=== PATIENT | female | born 1995 | race Caucasian/White ===

== ENCOUNTER 2019-10-05 11:05 | Emergency (ER) | payer OTHER, SELFPAY ==
--- NOTE | ~2019-10-05 | XR_ITS ---
EXAMINATION: XR chest 2V EXAM DATE: 10/05/2019 12:52 INDICATION: Cough, congestion with pain 2-3 weeks. TECHNIQUE: Frontal and lateral projections of the chest obtained and reviewed. Comparison is made to prior examination from 10/07/2013. FINDINGS: The lungs are clear. There are no pleural effusions. The cardiomediastinal silhouette is within normal limits. There is no pneumothorax suspected. The bones and soft tissues are unremarkab le. IMPRESSION: Normal chest x-ray exam. Reviewed, dictated and finalized at location A. INSTALLER REPAIRER IMPRESSION: Normal chest x-ray exam.
[2019-10-05 12:00] VITALS: BP 129/87; PULSE 113; RESP 16; TEMP 37; O2SAT 99
--- NOTE | 2019-10-05 12:41 | ED.URI ---
HPI - URI/Sore Throat General Chief Complaint: Upper Respiratory Infection Stated Complaint: cough chest congestion and pain Time Seen by Provider: 10/05/19 12:36 Source: patient and RN notes reviewed Mode of arrival: ambulatory Limitations: no limitations History of Present Illness HPI Narrative: Patient presents today with a 2-day history of occasionally productive cough, bilateral rib pain, shortness of breath, body aches, nasal congestion. Denies fever, sore throat, ear pain. No history of asthma or COPD. She is a non-smoker. She has been taking Tylenol without relief. MD elicited complaint: cough Related Data Home Medications Medication Instructions Recorded Confirmed copper [ParaGard T 380A] 1 device INTRAUTERINE ONCE 10/05/19 10/05/19 hydrocodone-acetaminophen 1 tablet PO Q6H PRN 10/05/19 10/05/19 Allergies Allergy/AdvReac Type Severity Reaction Status Date / Time sulfamethoxazole Allergy Mild rash Verified 10/05/19 12:29 trimethoprim Allergy Mild rash Verified 10/05/19 12:29 Review of Systems Review of Systems: Narrative: CONSTITUTIONAL: Denies fever, chills, or sweats.+Body aches EYES: Denies visual changes, redness, or discharge. ENT: Denies rhinorrhea, sore throat, or otalgia.+Congestion CARDIOVASCULAR: Denies chest pain, palpitations, or edema. RESPIRATORY: +Cough, shortness of breath, Rib pain GASTROINTESTINAL: Denies abdominal pain, nausea, vomiting, or diarrhea. GENITOURINARY: Denies dysuria or hematuria. SKIN: Denies rash, itching, or wounds. MUSCULOSKELETAL: Denies back pain, joint pain, or myalgia. NEUROLOGIC: Denies headache, numbness, tingling, or weakness. PSYCH: Denies depression or anxiety. PMFSH Social History Social History (Updated 10/05/19 @ 12:42 by Erika Dunaway, SALESPERSON [employer], ) Smoking status: Never smoker Comments At time of signature, I have reviewed and agree with nursing past medical, surgical, social and family history unless otherwise noted. Please see nursing chart for further information. There is no relevant family history pertinent to the presenting complaint Exam Narrative: Exam Narrative: GENERAL: Ill-appearing, well-nourished, and in no acute distress. HEAD: Normocephalic, atraumatic. EYES: EOMI. No redness or drainage. Conjunctivae normal. ENT: Mucous membranes pink and moist. Nares clear. No rhinorrhea. TMs normal bilaterally. Throat normal. Uvula midline. NECK: Normal AROM. Supple. No lymphadenopathy. CHEST: No respiratory distress. Diminished in the right lower lobe, Otherwise clear HEART: Regular rate and rhythm. No murmur appreciated. Normal peripheral pulses. EXTREMITIES: Normal range of motion. No edema. SKIN: Warm, dry, no rash. NEURO: No focal deficits. Alert and oriented x3. Gait steady. PSYCH: Normal affect. No signs of depression or anxiety. Course Course Emergency Course: Improved aeration after Duoneb. Vital Signs Vital signs: Vital Signs Temperature 98.6 F 10/05/19 12:00 Pulse Rate 113 H 10/05/19 12:00 Respiratory Rate 16 10/05/19 12:00 Blood Pressure 129/87 10/05/19 12:00 Pulse Oximetry 99 10/05/19 12:00 Temperature 98.6 F 10/05/19 12:00 Pulse Rate 113 H 10/05/19 12:00 Respiratory Rate 16 10/05/19 12:00 Blood Pressure 129/87 10/05/19 12:00 Pulse Oximetry 99 10/05/19 12:00 Reviewed. Pt has been instructed to follow up with her PCP regarding her elevated blood pressure today. MDM - URI/Sore Throat Differential Diagnosis Differential diagnosis: Likely upper respiratory infection, sinusitis, viral infection, bronchitis, influenza and other (Pneumonia pneumonia) Lab Data Attestation: I reviewed the patient's lab results. Labs: Influenza A Screen Negative Reference Range: Negative Influenza B Screen Negative Reference Range: Negative Imaging Data Radiologist's impression: ITS Impressions Chest X-Ray 10/05/19 12:52 IMPRESSION: Normal chest x-r
[2019-10-05] MEDS: IPRATROPIUM BR 0.02% INH SOLN 0.5 MG/2.5 ML VIAL INHALATION (13:01)
[2019-10-05] MEDS: ALBUTEROL SULFATE NEB 2.5 MG/3 ML INH INHALATION (13:02)
== END 2019-10-05 13:30 | disposition home or self-care (01) ==
PROVIDERS: Emergency Provider Nurse Practitioner
DX: J06.9 Acute upper respiratory infection, unspecified (principal)
CPT/HCPCS: 71046; 87804; 94640; 99213; G0463

== ENCOUNTER 2020-12-26 10:49 | Emergency (ER) | payer BC, SELFPAY ==
--- NOTE | ~2020-12-26 | XR_ITS ---
EXAMINATION: XR chest 2V DATE: 12/26/2020 11:17 INDICATION: Cough and shortness of breath. TECHNIQUE: Frontal and lateral views of the chest were obtained. COMPARISON: Chest 2 views 10/05/2019 FINDINGS: The chest demonstrates clear lungs without pneumonia, pleural effusion, or pneumothorax. Th e heart size is normal. IMPRESSION: 1. No acute cardiopulmonary disease. Reviewed, dictated and finalized at location B.
[2020-12-26 10:54] VITALS: BP 140/88; PULSE 105; RESP 22; TEMP 37.4; O2SAT 99
--- NOTE | 2020-12-26 10:59 | ED.URI ---
HPI - URI/Sore Throat General Chief Complaint: Upper Respiratory Infection Stated Complaint: sore throat cough chest pressure Time Seen by Provider: 12/26/20 10:59 Source: patient and RN notes reviewed History of Present Illness HPI Narrative: Patient is a 25-year-old female who presents the urgent care with complaints of dry cough, shortness of breath, congestion, headache, fever, nasal drainage. Patient states that its been going on for approximately 2 weeks and she has been treating her symptoms with [id number] cold and flu medication, Tylenol and ibuprofen. Patient denies of any known exposure to Covid, influenza or strep. Denies any history of pneumonia. Patient has been using an inhaler as needed for shortness of breath which she refilled recently from an old prescription. No other acute complaints. Patient appears visibly fatigued however no acute distress. Patient aware of the plan of care. Some parts of this dictation were generated by voice recognition software and may contain typographical and/or grammatical inaccuracies. Related Data Home Medications Medication Instructions Recorded Confirmed hydrocodone-acetaminophen 1 tablet PO Q6H PRN 10/05/19 12/26/20 sumatriptan succinate 100 mg PO DIRECTED PRN 12/26/20 12/26/20 Allergies Allergy/AdvReac Type Severity Reaction Status Date / Time sulfamethoxazole Allergy Mild rash Verified 12/26/20 11:03 trimethoprim Allergy Mild rash Verified 12/26/20 11:03 Review of Systems Review of Systems: Narrative: CONSTITUTIONAL: Reports of chills, sweats, fever EYES: Denies visual changes, redness, or discharge. ENT: Reports of postnasal drainage, sinus congestion CARDIOVASCULAR: Denies chest pain, palpitations, or edema. RESPIRATORY: Reports of mildly productive harsh cough with intermittent dyspnea GASTROINTESTINAL: Denies abdominal pain, nausea, vomiting, or diarrhea. GENITOURINARY: Denies dysuria or hematuria. SKIN: Denies rash or itching. MUSCULOSKELETAL: Denies back pain, joint pain. Reports of body aches NEUROLOGIC: Reports of intermittent headaches All other systems reviewed are negative, except as documented in HPI. [facility] Social History Social History (Updated 10/05/19 @ 12:42 by Erika Dunaway, SMALL ENGINE SPECIALIST, ) Smoking status: Never smoker Gender identity (if verbalized by the patient): Female Comments At the time of my signature, I reviewed and agree with the nursing past medical, surgical, social, and family history. There is no relevant family history pertinent to the patient complaint. Exam Narrative: Exam Narrative: GENERAL: This is a well-nourished, well-developed patient, in no apparent distress. HEAD: normocephalic, atraumatic. Moderate frontal sinus tenderness EYES: PERRL. Sclera clear/white. Vision is grossly intact. Bilateral injected conjunctive a EARS: External ears normal, auditory canals clear and without drainage, TMs normal without perforation. Hearing grossly intact. NOSE: External nose normal with no obvious nasal discharge, bilateral erythemic nares with clear rhinorrhea THROAT: Mucous membranes moist, posterior pharynx clear. Moderate postnasal drainage NECK: Neck supple, non-tender without lymphadenopathy CARDIOVASCULAR: Regular rate and rhythm without murmurs, gallops, or rubs. RESPIRATORY: Diminished bibasilar with slight crackles to the right lower lobe SKIN: warm, intact with no suspicious lesions or rash, good texture and turgor. NEURO: awake, alert, and oriented to person, place and time. There were no obvious focal neurologic abnormalities. EXTREMITIES: No clubbing, cyanosis, or edema. Course Vital Signs Vital signs: Vital Signs Temperature 99.3 F 12/26/20 10:54 Pulse Rate 105 H 12/26/20 10:54 Respiratory Rate 22 H 12/26/20 10:54 Blood Pressure 140/88 12/26/20 10:54 Pulse Oximetry 99 12/26/20 10:54 Temperature 99.3 F 12/26/20 10:54 Pulse Rate 105 H 12/26/20 10:54 Respiratory Rate 22 H 12/26/20 10:
== END 2020-12-26 11:36 | disposition home or self-care (01) ==
PROVIDERS: Emergency Provider Nurse Practitioner Family; PCP Family Medicine
DX: J40 Bronchitis, not specified as acute or chronic (principal); J32.9 Chronic sinusitis, unspecified; Z20.822 Contact with and (suspected) exposure to COVID-19; M91.10 Juvenile osteochondrosis of head of femur [Legg-Calve-Perthes], unspecified leg
CPT/HCPCS: 71046; 87426; 87804; 99213; C9803; G0463

== ENCOUNTER 2021-01-25 18:49 | Emergency (ER) | payer BC, SELFPAY ==
[2021-01-25 18:58] VITALS: BP 136/76; PULSE 90; RESP 18; TEMP 37.3; O2SAT 100
--- NOTE | 2021-01-25 19:09 | ED.URI ---
HPI - URI/Sore Throat General Chief Complaint: Upper Respiratory Infection Stated Complaint: Sore Throat, Headache Time Seen by Provider: 01/25/21 19:09 Source: patient and RN notes reviewed History of Present Illness HPI Narrative: Patient is a 25-year-old female who presents the urgent care with complaints of a 2-day history of a sore throat. Patient states that for the last several months she has had chronic sinusitis and has tried pretty much everything [id number] . Patient is currently taking DayQuil, NyQuil, Flonase nasal spray, eyedrops and Claritin. Patient was seen at the facility on December 26 and prescribed prednisone and doxycycline with moderate resolution for a few weeks. Patient has not followed up with an ENT. No other acute complaints. Denies fever, chills, nausea, vomiting. No acute distress noted. Patient aware of the plan of care. Some parts of this dictation were generated by voice recognition software and may contain typographical and/or grammatical inaccuracies. Related Data Home Medications Medication Instructions Recorded Confirmed hydrocodone-acetaminophen 1 tablet PO Q6H PRN 10/05/19 12/26/20 sumatriptan succinate 100 mg PO DIRECTED PRN 12/26/20 12/26/20 Allergies Allergy/AdvReac Type Severity Reaction Status Date / Time sulfamethoxazole Allergy Mild rash Verified 01/25/21 19:09 trimethoprim Allergy Mild rash Verified 01/25/21 19:09 Review of Systems Review of Systems: Narrative: CONSTITUTIONAL: Denies fever, chills, or sweats. EYES: Denies visual changes, redness, or discharge. ENT: Reports sinus congestion, rhinorrhea, sore throat CARDIOVASCULAR: Denies chest pain, palpitations, or edema. RESPIRATORY: Denies cough or dyspnea. GASTROINTESTINAL: Denies abdominal pain, nausea, vomiting, or diarrhea. GENITOURINARY: Denies dysuria or hematuria. SKIN: Denies rash or itching. MUSCULOSKELETAL: Denies back pain, joint pain, or myalgia. NEUROLOGIC: Denies headache, numbness, or weakness. All other systems reviewed are negative, except as documented in HPI. [facility] Social History Social History (Updated 10/05/19 @ 12:42 by Erika Dunaway, PIGS FEET CLEANER, [place]) Smoking status: Never smoker Gender identity (if verbalized by the patient): Female Comments At the time of my signature, I reviewed and agree with the nursing past medical, surgical, social, and family history. There is no relevant family history pertinent to the patient complaint. Exam Narrative: Exam Narrative: GENERAL: This is a well-nourished, well-developed patient, in no apparent distress. HEAD: normocephalic, atraumatic. Mild frontal sinus tenderness EYES: PERRL. Sclera clear/white. Vision is grossly intact. EARS: External ears normal, auditory canals clear and without drainage, TMs normal without perforation. Hearing grossly intact. NOSE: External nose normal with no obvious nasal discharge, mild bilateral erythemic nares with clear rhinorrhea THROAT: Mucous membranes moist, posterior pharynx clear. Mild postnasal drainage NECK: Neck supple CARDIOVASCULAR: Regular rate and rhythm without murmurs, gallops, or rubs. RESPIRATORY: Clear to auscultation. Breath sounds equal bilaterally. No wheezes, rales, or rhonchi. SKIN: warm, intact with no suspicious lesions or rash, good texture and turgor. NEURO: awake, alert, and oriented to person, place and time. There were no obvious focal neurologic abnormalities. EXTREMITIES: No clubbing, cyanosis, or edema. Course Vital Signs Vital signs: Vital Signs Temperature 99.2 F 01/25/21 18:58 Pulse Rate 90 01/25/21 18:58 Respiratory Rate 18 01/25/21 18:58 Blood Pressure 136/76 01/25/21 18:58 Pulse Oximetry 100 01/25/21 18:58 Temperature 99.2 F 01/25/21 18:58 Pulse Rate 90 01/25/21 18:58 Respiratory Rate 18 01/25/21 18:58 Blood Pressure 136/76 01/25/21 18:58 Pulse Oximetry 100 01/25/21 18:58 Reviewed MDM - URI/Sore Throat MDM Narrative Medical decision making
== END 2021-01-25 19:20 | disposition home or self-care (01) ==
PROVIDERS: Emergency Provider Nurse Practitioner Family; PCP Family Medicine
DX: J02.9 Acute pharyngitis, unspecified (principal)
CPT/HCPCS: 87081; 87880; 99213; G0463

== ENCOUNTER 2024-10-18 11:32 | Emergency (ER) | payer BC, SELFPAY ==
[2024-10-18 11:40] VITALS: BP 139/83; PULSE 120; RESP 16; TEMP 36.7; O2SAT 100
--- NOTE | 2024-10-18 11:52 | ED.UPPEXIN ---
HPI - Extremity Injury (Upper) General Chief Complaint: Extremity Injury, Upper Stated Complaint: Left Shoulder Injury Time Seen by Provider: 10/18/24 11:54 Source: patient and RN notes reviewed Mode of arrival: ambulatory Limitations: no limitations History of Present Illness HPI narrative: 29-year-old female presents with concern for left shoulder pain. She reports last night she was wrestling with her family when she fell onto her left shoulder. She said she felt a pop with the pain. She is holding it close to her abdomen, says it hurts to raise it. She reports pain at rest and worsening pain with movement. She denies bruising,, warmth, swelling MD complaint: injury to: left and shoulder Related Data Home Medications ?Medication ?Instructions ?Recorded ?Confirmed ?Last Taken ?Type hydrocodone 10 mg-acetaminophen 1 tablet PO Q6H PRN Pain 10/05/19 10/18/24 Unknown History 325 mg tablet sumatriptan succinate 100 mg tablet 100 mg PO DIRECTED PRN Headache 12/26/20 10/18/24 Unknown History duloxetine 30 mg capsule,delayed mg PO 10/18/24 Unknown History release Allergies Allergy/AdvReac Type Severity Reaction Status Date / Time sulfamethoxazole Allergy Mild rash Verified 10/18/24 11:57 trimethoprim Allergy Mild rash Verified 10/18/24 11:57 Review of Systems Review of Systems: CONSTITUTIONAL: Denies malaise, chills, sweats, or fever. SKIN: Denies rash or itching, open skin, laceration, abrasion, redness, warmth, swelling. MUSCULOSKELETAL: Reports left shoulder pain NEUROLOGIC: Denies numbness, weakness All systems reviewed & are unremarkable except as noted in HPI and below PMFSH Social History Social History (Updated 10/05/19 @ 12:42 by Erika Dunaway, [facility], ) Smoking status: Never smoker Gender identity (if verbalized by the patient): Female Comments At time of signature, agree with nursing past medical, surgical, social and family history. There is no relevant family history pertinent to the presenting complaint Exam Narrative: GENERAL: Well-appearing, well-nourished, and in no acute distress. HEAD: Normocephalic, atraumatic. EYES: PERRLA, conjunctivae clear NECK: Supple. CHEST: Speaks in full sentences. No respiratory distress. HEART: Regular rate and rhythm. Normal and equal peripheral pulses. EXTREMITIES: Left upper extremity has grossly normal strength and sensation, limited normal range of motion. No edema or ecchymosis. Normal sensation with sensitivity to light touch and pain. Anterior shoulder tenderness. No open wounds, no skin tenting, no devitalized tissue or atrophy, no trophic changes, no obvious deformity, alignment normal, nearby joints and structures intact. Distal pulses palpable and equal bilaterally, skin warm, dry, pink. Capillary refill less than 3 seconds. SKIN: Warm, dry, no rash. NEURO: Alert and oriented x3. PSYCH: Normal mood and affect Course Course Emergency Course: Patient is aware of diagnosis, understands and agrees to treatment plan. Anticipatory guidance given. Patient agrees to follow-up as directed and is aware of reasons to seek care at the emergency department. Portions of this record may have been created with voice recognition software Level of Care: Express Care Visit Vital Signs Vital signs: Vital Signs Temperature 98.1 F 10/18/24 11:40 Pulse Rate 120 H 10/18/24 11:40 Respiratory Rate 16 10/18/24 11:40 Blood Pressure 139/83 10/18/24 11:40 Pulse Oximetry 100 10/18/24 11:40 Oxygen Delivery Room Air 10/18/24 11:40 Temperature 98.1 F 10/18/24 11:40 Pulse Rate 120 H 10/18/24 11:40 Respiratory Rate 16 10/18/24 11:40 Blood Pressure 139/83 10/18/24 11:40 Pulse Oximetry 100 10/18/24 11:40 Oxygen Delivery Room Air 10/18/24 11:40 Reviewed. MDM - Extremity Injury (Upper) [facility] Narrative Medical decision making narrative: Patients injury and pain is consistent with musculoskeletal etiology. No signs of neurological or vascular compromise on exam. Compartments and tissues are soft without signs of compartment syndrome. Pain is felt appropriate for further evaluation on an outpatient basis. Imaging Data My impression: Images reviewed, interpreted by radiologist, agree, see report. Radiologist's impression: 2 views of the left clavicle CLINICAL HISTORY: Pain, injury FINDINGS: No acute fracture or dislocation seen. Joint spaces are intact. Soft tissues are unremarkable. IMPRESSION: Unremarkable exam. Critical Care Time Critical Care Time Critical Care Time: No Discharge Plan Discharge Clinical Impression: Shoulder sprain Patient Disposition: Home, Self-Care Condition: Stable Instructions: Shoulder Sprain (ED) Additional Instructions: Your x-ray results are normal Avoid activities that cause pain until the pain subsides. Ice to the area 20-30 minutes 4-6 times a day Elevate above heart Sling as needed for comfort Tylenol for lesser pain Ibuprofen regularly for the next 2-3 days for the inflammation Follow up with your primary care provider or orthopedics if the condition is not improving within 1 week. If the condition worsens with numbness, tingling, decrease sensation with weakness seek treatment in the emergency room immediately. Patient Language: Yoruba Prescriptions: New ibuprofen 800 mg tablet 800 mg PO Q6H PRN (Reason: pain) Qty: 30 0RF No Action hydrocodone-acetaminophen 10-325 mg Tablet 1 tablet PO Q6H PRN (Reason: Pain) sumatriptan succinate 100 mg tablet 100 mg PO DIRECTED PRN (Reason: Headache) duloxetine 30 mg capsule,delayed release(DR/EC) PO Follow-up/Referrals: Rudy Chavez MD [Physician] - [place],Viktor Du MD [Primary Care Provider] - Time of Disposition: 12:30
== END 2024-10-18 12:37 | disposition home or self-care (01) ==
PROVIDERS: Emergency Provider Nurse Practitioner; PCP Family Medicine
DX: S43.402A Unspecified sprain of left shoulder joint, initial encounter (principal); W19.XXXA Unspecified fall, initial encounter; Y93.83 Activity, rough housing and horseplay
CPT/HCPCS: 73000; 99213; A4565; G0463